=== PATIENT | female | born 1990 | race American Indian/Alaskan Native ===

== ENCOUNTER 2022-05-08 17:08 | Emergency (ER) | payer SELFPAY ==
[2022-05-08 18:40] VITALS: BP 172/103
[2022-05-08] MEDS ORDERED: traMADol 50 MG TAB PO ONE (21:48)
[2022-05-08] MEDS ORDERED: CLINDAMYCIN 300 MG CAP PO ONE (21:48)
--- NOTE | 2022-05-08 22:41 | Emergency Department Report ---
ED General Adult HPI - General Chief complaint: Headache Stated complaint: NECK PAIN/TOOTHACHE Time Seen by Provider: 05/08/22 21:47 Source: patient Mode of arrival: Ambulatory Limitations: No Limitations - History of Present Illness Initial comments: Patient 31-year-old female who presents with bilateral lower dental pain. States aching throbbing. There is no facial or gum swelling. There is been no fevers or chills. There is no ear or throat pain. Patient is tolerating p.o. intake. Symptoms are exacerbated by hot and cold stimuli Chewing. Symptoms are relieved by nothing tried. Patient has dentist however has been unable to get appointment.. Severity scale (0 -10): 10 - Related Data Previous Rx's Medication Instructions Recorded Last Taken Type Clindamycin [Clindamycin CAP] 300 mg PO Q8H 7 Days #21 cap 05/08/22 Unknown Rx traMADoL [Ultram] 50 mg PO Q6HR PRN #12 tablet 05/08/22 Unknown Rx Allergies Allergy/AdvReac Type Severity Reaction Status Date / Time naproxen Allergy Itching Verified 05/08/22 18:40 Penicillins Allergy Swelling Verified 05/08/22 18:40 ED Review of Systems ROS: Stated complaint: NECK PAIN/TOOTHACHE Other details as noted in HPI Constitutional: denies: chills, fever Eyes: denies: eye pain, eye discharge, vision change ENT: dental pain. denies: ear pain, throat pain Respiratory: denies: cough, shortness of breath, wheezing Cardiovascular: denies: chest pain, palpitations Endocrine: no symptoms reported Gastrointestinal: denies: abdominal pain, nausea, diarrhea Genitourinary: denies: urgency, dysuria, discharge Musculoskeletal: denies: back pain, joint swelling, arthralgia Skin: denies: rash, lesions Neurological: denies: headache, weakness, paresthesias Psychiatric: denies: anxiety, depression Hematological/Lymphatic: denies: easy bleeding, easy bruising ED Past Medical Hx - Medications Home Medications: Home Medications Medication Instructions Recorded Confirmed Last Taken Type Clindamycin [Clindamycin CAP] 300 mg PO Q8H 7 Days #21 cap 05/08/22 Unknown Rx traMADoL [Ultram] 50 mg PO Q6HR PRN #12 tablet 05/08/22 Unknown Rx ED Physical Exam - General Limitations: No Limitations General appearance: alert, in no apparent distress - Head Head exam: Present: normocephalic, normal inspection - Eye Eye exam: Present: PERRL, EOMI Pupils: Present: normal accommodation - ENT ENT exam: Present: mucous membranes moist, TM's normal bilaterally - Expanded ENT Exam Expanded Ear exam: Present: normal external inspection Teeth exam: Present: dental caries (1 &16 dental caries no focal abscess mild erythema no drainage no gum swelling no facial swelling) Throat exam: Positive: normal inspection - Neck Neck exam: Present: normal inspection, full ROM. Absent: lymphadenopathy - Respiratory Respiratory exam: Present: normal lung sounds bilaterally. Absent: respiratory distress, wheezes - Cardiovascular Cardiovascular Exam: Present: regular rate, normal rhythm, normal heart sounds. Absent: systolic murmur, diastolic murmur, rubs, gallop - GI/Abdominal GI/Abdominal exam: Present: soft, normal bowel sounds. Absent: distended, ten derness, bruit, hernia - Rectal Rectal exam: Present: deferred - Extremities Exam Extremities exam: Present: normal inspection, full ROM, normal capillary refill - Back Exam Back exam: Present: normal inspection, full ROM. Absent: CVA tenderness (R), CVA tenderness (L) - Neurological Exam Neurological exam: Present: alert, oriented X3 - Psychiatric Psychiatric exam: Present: normal affect, normal mood - Skin Skin exam: Present: warm, dry, intact, normal color. Absent: rash ED Course Vital Signs 05/08/22 05/08/22 18:34 22:15 Temperature 98.8 F Pulse Rate 103 H Respiratory 18 16 Rate Blood Pressure 172/103 [Right] O2 Sat by Pulse 100 Oximetry ED Medical Decision Making - Medical Decision Making Is a straightforward infected dental caries. Plan DC to home with prescriptions. Follow-up with dentist in 2 to 3 days. Return to emergency department should symptoms worsen. Patient verbalized agreement and understanding with discharge plan. Patient DC'd home in stable condition at this time. Critical care attestation.: If time is entered above; I have spent that time in minutes in the direct care of this critically ill patient, excluding procedure time. ED Disposition Clinical Impression: Dental caries Disposition: HOME / SELF CARE / HOMELESS Is pt being admited?: No Does the pt Need Aspirin: No Condition: Stable Instructions: Preventive Dental Care, Adult Additional Instructions: Take medications as prescribed, follow-up with your dentist in 2 to 3 days. Return to emergency department should symptoms worsen. Prescriptions: Clindamycin [Clindamycin CAP] 300 mg PO Q8H 7 Days #21 cap traMADoL [Ultram] 50 mg PO Q6HR PRN #12 tablet PRN Reason: Pain Referrals: [facility] [Outside] - 3-5 Days Forms: Work/School Release Form(ED) Time of Disposition: 22:46
== END 2022-05-08 23:12 | disposition home or self-care (01) ==
LOC: ED 17:08
DX: K02.9 Dental caries, unspecified (principal); Z88.0 Allergy status to penicillin; Z88.8 Allergy status to other drugs, medicaments and biological substances
CPT/HCPCS: 99282